=== PATIENT | female | born 1960 | race Two or more races ===

== ENCOUNTER 2019-03-07 21:58 | Emergency (ER) | payer OTHER ==
[~2019-03-07] VITALS: Ht 165.1 cm; Wt 65.8 kg
[2019-03-07] MEDS ORDERED: FENTANYL PF 100MCG/2ML AMPUL ONE (22:13)
--- NOTE | 2019-03-07 22:17 | NUR ---
BIBRA FROM HOME. TO ER BED 9. AAOX4. PT CRYING AND YELLING. NO RESP DISTRESS NOTED. C/O R SHOULDER PAIN S/P FALL FROM HOME. PT R SHOULDER PAIN 04/22. PAIN WITH MOVEMENT. RADIAL PULSE FELT UPON PALPATION. MD AT BEDSIDE FOR EVAL. ORDERS RECEIVED, NOTED AND CARRIED OUT. IV LINE OBATAINED ON LFA 20G.
--- NOTE | 2019-03-07 22:19 | NUR ---
XRAY AT BEDSIDE
[2019-03-07] MEDS ORDERED: FENTANYL PF 100MCG/2ML AMPUL IV ONE (22:30)
--- NOTE | 2019-03-07 22:33 | NUR ---
EMT AT BEDSIDE FOR ORTHO APPLIANCE
[2019-03-07] MEDS ORDERED: MORPHINE SULFATE INJ 2 MG/ML DISP.SYRIN IV ONE (23:00)
[2019-03-07] MEDS ORDERED: MORPHINE SULFATE INJ 4 MG/ML DISP.SYRIN ONE (23:00)
[2019-03-07] MEDS ORDERED: ONDANSETRON HCL/PF 4 MG/2 ML VIAL ONE (23:00)
[2019-03-07] MEDS ORDERED: ONDANSETRON HCL/PF 4 MG/2 ML VIAL IV ONE (23:00)
[2019-03-07 23:26] VITALS: BP 121/83
--- NOTE | 2019-03-07 23:49 | NUR ---
Patient discharged to home in stable condition. Written and verbal after care instructions given. Patient verbalizes understanding of instruction.IV removed. Catheter intact and site benign. Pressure and 4x4 applied to site. No bleeding noted. Pt ambulatory with a steady gait
== END 2019-03-07 23:51 | disposition home or self-care (01) ==
LOC: ER 22:01
DX: S42.211A Unspecified displaced fracture of surgical neck of right humerus, initial encounter for closed fracture (principal); W07.XXXA Fall from chair, initial encounter; Y93.89 Activity, other specified; Y92.89 Other specified places as the place of occurrence of the external cause; Y99.8 Other external cause status
CPT/HCPCS: 73030; 96374; 96375; 99283; J2270; J2405; J3010